=== PATIENT | male | born 1995 | race Caucasian/White ===

== ENCOUNTER 2021-05-02 18:54 | Emergency (ER) | payer OTHER ==
[~2021-05-02] VITALS: Ht 182.9 cm; Wt 83.9 kg
[2021-05-02 19:07] VITALS: BP 139/88
--- NOTE | 2021-05-02 19:08 | NUR ---
TO ER BED 12, C/O FEELING "STRESS OUT" AND SLEEP DEPRIVED. WANTS TO GET CHECK OUT. WANTS MEDICATION FOR SLEEP. AAOX3, BREATHING EVEN AND NON LABORED, AWAITING MD ROSS
--- NOTE | 2021-05-02 19:22 | NUR ---
CHONG STUART (MOTHER) - .
[2021-05-02] MEDS ORDERED: ZOLP12.52 PO (19:44)
--- NOTE | 2021-05-02 20:53 | NUR ---
Patient discharged to home in stable condition. RX Written and verbal after care instructions given. Patient verbalizes understanding of instruction. PT ambulatory with a steady gait
== END 2021-05-02 20:54 | disposition home or self-care (01) ==
LOC: ER 19:19
DX: G47.00 Insomnia, unspecified (principal); F31.9 Bipolar disorder, unspecified; Z79.899 Other long term (current) drug therapy